=== PATIENT | female | born 1995 | race Caucasian/White ===

== ENCOUNTER 2018-04-25 11:43 | Emergency (ER) | payer OTHER ==
[2018-04-25 11:48] VITALS: TEMP 98.1; BMI 25.1
--- NOTE | 2018-04-25 12:03 | PDOC ---
History of Present Illness - General Chief Complaint: Vaginal Bleeding Stated Complaint: VAGINAL BLEEDING Time Seen by Provider: 04/25/18 12:02 History Source: Patient Exam Limitations: No Limitations - History of Present Illness Initial Comments: 04/25/18 12:05 CHIEF COMPLAINT: Vaginal bleeding HISTORY OF PRESENT ILLNESS: This is an otherwise healthy 23-year-old female, LMP 02/25, who presents complaining of heavy vaginal bleeding with clots, pelvic cramping, and back pain since last night. She believes she may have had a miscarriage and would like further evaluation. She denies dizziness/ lightheadedness or any other symptoms. She normally receives obstetric care at [address] [place] [address]. She did have an ultrasound at [facility] for this , but does not recall any information about it including dating. Vital signs on arrival are all within normal limits. REVIEW OF SYSTEMS: GENERAL/CONSTITUTIONAL: No fever or chills. No weakness. No weight change. HEAD, EYES, EARS, NOSE AND THROAT: No change in vision. No ear pain or discharge. No sore throat. CARDIOVASCULAR: No chest pain or palpitations. RESPIRATORY: No cough, wheezing, or shortness of breath. GASTROINTESTINAL: No nausea, vomiting, diarrhea or constipation. GENITOURINARY: See HPI. MUSCULOSKELETAL: No joint or muscle swelling or pain. No neck or back pain. SKIN: No rash or easy bruising. NEUROLOGIC: No headache, vertigo, loss of consciousness, or loss of sensation. PSYCHIATRIC: No depression or anxiety. ENDOCRINE: No increased thirst. No abnormal weight change. HEMATOLOGIC/LYMPHATIC: No anemia, easy bleeding, or history of blood clots. ALLERGIC/IMMUNOLOGIC: No hives or skin allergy. No latex allergy. PHYSICAL EXAM: GENERAL: The patient is awake, alert, and fully oriented, in no acute distress. HEAD: Normal with no signs of trauma. ENT: Pupils equal, round and reactive to light, extraocular movements intact, sclera anicteric, conjunctiva clear. Neck supple. LUNGS: Clear to auscultation bilaterally. Normal excursion. No respiratory distress or use of accessory muscles. CV: RRR, S1/S2, no MRG. Cap refill < 2 sec. ABDOMEN: Soft, non-distended, non-tender. EXTREMITIES: Normal range of motion, no edema. NEUROLOGICAL: Normal speech, normal gait. CN II-XII grossly intact. PSYCH: Normal mood, normal affect. SKIN: Warm, dry, normal turgor, no rashes or lesions noted. : Normal external exam. Cervix open 1 fingerbreadth. Moderate bleeding and clots in vaginal vault. Past History - Past Medical History Allergies/Adverse Reactions: Allergies Allergy/AdvReac Type Severity Reaction Status Date / Time Latex, Natural Rubber Allergy Mild Hives Verified 04/25/18 12:29 morphine Allergy Mild Hives Verified 04/25/18 12:29 onion Allergy Hives Verified 04/25/18 12:29 Home Medications: Ambulatory Orders NK [No Known Home Medication] 11/23/15 Anemia: Yes Asthma: No Cancer: No Cardiac Disorders: No COPD: No Diabetes: No HTN: No Seizures: No Thyroid Disease: No - Surgical History Abdominal Surgery: No GI Surgery: No Neurologic Surgery: No - Immunization History Immunization Up to Date: No - Suicide/Smoking/Psychosocial Hx Smoking History: Current every day smoker Have you smoked in the past 12 months: No Number of Cigarettes Smoked Daily: 8 Cigars Per Day: 0 Information on smoking cessation initiated: No 'Breaking Loose' booklet given: 11/23/15 Hx Alcohol Use: No Drug/Substance Use Hx: No Substance Use Type: Alcohol Hx Substance Use Treatment: No *Physical Exam - Vital Signs Last Vital Signs Temp Pulse Resp BP Pulse Ox 98.1 F 75 18 127/63 98 04/25/18 11:45 04/25/18 11:45 04/25/18 11:45 04/25/18 11:45 04/25/18 11:45 Moderate Sedation - Procedure Monitoring Vital Signs: Procedure Monitoring Vital Signs Temperature 98.1 F 04/25/18 11:45 Pulse Rate 75 04/25/18 11:45 Respiratory Rate 18 04/25/18 11:45 Blood Pressure 127/63 04/25/18 11:45 O2 Sat by Pulse Oximetry (%) 98 04/25/18 11:45 ED Treatment Course - LABORATORY CBC & Chemistry Diagram: 04/25/18 12:23 04/25/18 12:23 Medical Decision Making - Medical Decision Making 04/25/18 13:49 A/P: 23-year-old female with vaginal bleeding in first trimester . 1. Labs including CBC, beta hCG, type and screen 2. Tylenol for pain 3. Transvaginal ultrasound 4. Reassess 04/25/18 14:40 Ultrasound reviewed: thickened endometrium without evidence of IUP. 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
[2018-04-25] MEDS ORDERED: ACETAMINOPHEN 500 MG TABLET (FP) PO ONE (12:06)
[2018-04-25] MEDS ORDERED: ACETAMINOPHEN 325 MG TABLET (FP) ONE (12:16)
[2018-04-25 12:33] LABS: BASO % 0.4 % (0-2.0); EOS % 0.7 % (0-4.5); HEMATOCRIT 31.5 % (32.4-45.2); HEMOGLOBIN 11.3 GM/dL (10.7-15.3); LYMPH % 23.3 % (8-40); MCH 33.2 pg (25.7-33.7); MCHC 35.8 g/dl (32.0-36.0); MEAN CELL VOLUME 92.7 fl (80-96); MEAN PLT VOLUME 8.2 fl (7.5-11.1); MONO % 7.5 % (3.8-10.2); NEUT % 68.1 % (42.8-82.8); PLATELET COUNT 309 K/MM3 (134-434); WHITE BLOOD COUNT 9.2 K/mm3 (4.0-10.0)
[2018-04-25 13:49] LABS: ALBUMIN 3.5 g/dl (3.4-5.0); ALK PHOS 56 U/L (45-117); ANION GAP 4 MMOL/L (8-16); BILIRUBIN,TOTAL 0.4 mg/dL (0.2-1); BLOOD UREA NITROGEN 8 mg/dL (7-18); CALCIUM 8.6 mg/dL (8.5-10.1); CHLORIDE 106 mmol/L (98-107); CO2 28 mmol/L (21-32); CREATININE 0.5 mg/dL (0.55-1.3); GLUCOSE,RANDOM 88 mg/dL (74-106); POTASSIUM 3.8 mmol/L (3.5-5.1); SGOT/AST 9 U/L (15-37); SGPT/ALT 13 U/L (13-61); SODIUM 138 mmol/L (136-145); TOT PROT 6.7 g/dl (6.4-8.2)
[2018-04-25 14:32] VITALS: BP 111/58; PULSE 60
== END 2018-04-25 14:59 | disposition home or self-care (01) ==
LOC: JER 11:43
DX: O03.9 Complete or unspecified spontaneous abortion without complication (principal); F17.210 Nicotine dependence, cigarettes, uncomplicated
CPT/HCPCS: 36415; 76801-TC; 80053; 84702; 85025; 86850; 86870; 86900; 86901; 86902; 99283-25

== ENCOUNTER 2018-07-26 09:03 | Emergency (ER) | payer OTHER ==
[2018-07-26 09:09] VITALS: BP 110/71; PULSE 78; TEMP 98.4; BMI 25.4
[2018-07-26] MEDS ORDERED: ALBUTEROL SO4 2.5/IPRATROPIUM 0.5 INH SOL 3 ML VIAL.NEB. NEB ONE ×2 (09:23→09:26)
[2018-07-26] MEDS ORDERED: IBUPROFEN 600 MG TABLET (FP) PO ONE ×2 (09:47→10:03)
--- NOTE | 2018-07-26 09:47 | PDOC ---
History of Present Illness - General Chief Complaint: Cold Symptoms Stated Complaint: COUGH Time Seen by Provider: 07/26/18 09:15 History Source: Patient Exam Limitations: No Limitations - History of Present Illness Initial Comments: 07/26/18 11:55 Patient came with complaints of worsening cough and cold symptoms the past few days. States does not have fever but felt chills this morning. Has have a moist cough but is unknown phlegm color. Has been using upok-yzp-xgawerw medications with minimal resolved. Is a smoker. States daughter was ill with same earlier this week. Timing/Duration: reports: getting worse Severity: reports: mild, moderate Modifying Factors: improves with: coughing Associated Symptoms: reports: cough, facial pain, headache, nasal drainage Past History - Travel Traveled outside of the country in the last 30 days: No Close contact w/someone who was outside of country & ill: No - Past Medical History Allergies/Adverse Reactions: Allergies Allergy/AdvReac Type Severity Reaction Status Date / Time Latex, Natural Rubber Allergy Mild Hives Verified 04/25/18 12:29 morphine Allergy Mild Hives Verified 04/25/18 12:29 onion Allergy Hives Verified 04/25/18 12:29 Home Medications: Ambulatory Orders Albuterol Sulfate Inhaler - [Ventolin HFA Inhaler -] 1 - 2 inh PO Q4H #1 inhaler 07/26/18 Anemia: Yes Asthma: No Cancer: No Cardiac Disorders: No COPD: No Diabetes: No HTN: No Seizures: No Thyroid Disease: No - Surgical History Abdominal Surgery: No GI Surgery: No Neurologic Surgery: No - Immunization History Immunization Up to Date: No - Suicide/Smoking/Psychosocial Hx Smoking History: Current every day smoker Have you smoked in the past 12 months: Yes Number of Cigarettes Smoked Daily: 6 Cigars Per Day: 0 Information on smoking cessation initiated: No 'Breaking Loose' booklet given: 11/23/15 Hx Alcohol Use: No Drug/Substance Use Hx: No Substance Use Type: Alcohol Hx Substance Use Treatment: No Review of Systems - Review of Systems Able to Perform ROS?: Yes Is the patient limited Sinhala proficient: Yes Constitutional: Yes: Symptoms Reported, See HPI, Loss of Appetite, Malaise. No : Fever HEENTM: Yes: See HPI. No: Symptoms Reported Respiratory: Yes: See HPI, Cough. No: Symptoms reported : No: Symptoms Reported Musculoskeletal: Yes: Symptoms Reported, See HPI, Joint Swelling, Muscle Pain All Other Systems: Reviewed and Negative *Physical Exam - Vital Signs Last Vital Signs Temp Pulse Resp BP Pulse Ox 98.4 F 78 18 110/71 99 07/26/18 09:06 07/26/18 09:06 07/26/18 09:06 07/26/18 09:06 07/26/18 09:06 - Physical Exam General Appearance: Yes: Nourished, Appropriately Dressed, Mild Distress HEENT: positive: MARIOLA, TMs Normal, Pharynx Normal, Nasal Congestion, Rhinorrhea , Sinus Tenderness Neck: positive: Supple, Lymphadenopathy (R), Lymphadenopathy (L) Respiratory/Chest: positive: Decreased Breath Sounds. negative: Lungs Clear, Normal Breath Sounds Gastrointestinal/Abdominal: positive: Soft Musculoskeletal: positive: Normal Inspection Extremity: positive: Normal Capillary Refill, Normal Inspection, Normal Range of Motion Integumentary: positive: Dry, Warm Neurologic: positive: goal umpire II-XII NML intact, Fully Oriented, Alert, Normal Mood/ Affect, Normal Response, Motor Strength 5/5 Progress Note - Progress Note Progress Note: Upper respiratory infection, influenza testing negative. Somewhat improved after albuterol/DuoNeb given therefore will treat with albuterol inhaler, and continue tzjy-uym-ffbkgew medications for conservative treatments. *DC/Admit/Observation/Transfer Diagnosis at time of Disposition: Upper respiratory infection, acute - Discharge Dispostion Disposition: HOME Condition at time of disposition: Stable Decision to Admit order: No - Prescriptions Prescriptions: Albuterol Sulfate Inhaler - [Ventolin HFA Inhaler -] 1 - 2 inh PO Q4H #1 inhaler - Referrals - Patient Instructions Printed Discharge Instructions: DI for Viral Upper Respiratory Infection -- Adult Additional Instructions: Rest, drink lots of fluids: Teas, water, soups, Pedialyte Saltwater gargles Steamy showers/seem to face break up mucus Avoid contact with others until fevers and cough resolved Lots of handwashing and good hygiene Continue tzdp-pie-kjfmvag medications for symptomatic relief Tylenol or Motrin for fever and pain Followup with private physician in one to 2 days as needed Return to emergency department for worsened symptoms, fevers, dehydration - Post Discharge Activity Forms/Work/School Notes: Back to Work
== END 2018-07-26 10:09 | disposition home or self-care (01) ==
LOC: JERFT 09:03
PROC: 3E0F7GC Introduction of Other Therapeutic Substance into Respiratory Tract, Via Natural or Artificial Opening (ICD-10-PCS; principal; 2018-07-26)
DX: J06.9 Acute upper respiratory infection, unspecified (principal); Z86.2 Personal history of diseases of the blood and blood-forming organs and certain disorders involving the immune mechanism; Z88.6 Allergy status to analgesic agent; Z91.040 Latex allergy status; Z91.018 Allergy to other foods
CPT/HCPCS: 87804; 99281-25

== ENCOUNTER 2019-01-09 12:02 | Emergency (ER) | payer OTHER ==
[2019-01-09 12:10] VITALS: BP 126/85; PULSE 97; TEMP 98.5; BMI 25.7
--- NOTE | 2019-01-09 12:42 | PDOC ---
History of Present Illness - General Chief Complaint: Cold Symptoms Stated Complaint: COUGH, HEADACHE Time Seen by Provider: 01/09/19 12:15 - History of Present Illness Initial Comments: 01/09/19 12:39 23-year-old female presents for evaluation of flulike symptoms x4 days she has no comorbidities. Past History - Past Medical History Allergies/Adverse Reactions: Allergies Allergy/AdvReac Type Severity Reaction Status Date / Time morphine Allergy Mild Hives Verified 01/09/19 12:10 onion Allergy Hives Verified 01/09/19 12:10 Home Medications: Ambulatory Orders Albuterol Sulfate Inhaler - [Ventolin HFA Inhaler -] 1 - 2 inh PO Q4H #1 inhaler 07/26/18 Guaifenesin Dm [Mucinex Dm -] 1 tab PO BID #60 tab.er.12h 01/09/19 Ibuprofen [Motrin -] 600 mg PO TID #30 tablet 01/09/19 Anemia: Yes Asthma: No Cancer: No Cardiac Disorders: No COPD: No Diabetes: No HTN: No Seizures: No Thyroid Disease: No - Surgical History Abdominal Surgery: No GI Surgery: No Neurologic Surgery: No - Immunization History Immunization Up to Date: No - Psycho Social/Smoking Cessation Hx Smoking History: Never smoked Have you smoked in the past 12 months: Yes Number of Cigarettes Smoked Daily: 6 Cigars Per Day: 0 Information on smoking cessation initiated: No 'Breaking Loose' booklet given: 11/23/15 Hx Alcohol Use: No Drug/Substance Use Hx: No Substance Use Type: Alcohol Hx Substance Use Treatment: No Review of Systems - Review of Systems Constitutional: Yes: Chills, Diaphoresis, Malaise, Night Sweats. No: Fever HEENTM: Yes: Nose Congestion Respiratory: Yes: Cough *Physical Exam - Vital Signs Last Vital Signs Temp Pulse Resp BP Pulse Ox 98.5 F 97 H 19 126/85 98 01/09/19 12:08 01/09/19 12:08 01/09/19 12:08 01/09/19 12:08 01/09/19 12:08 - Physical Exam Comments: 01/09/19 12:40 HEAD: NC/AT EYES: Conjuntiva clear Ears: Canals and TM's normal NOSE: No d/c THROAT: Moist mucous membrances, oral pharanx clear, uvula midline NECK: Supple without adenopathy CARDIAC: S1 S2 LUNGS: CTA Full and Equal breath sounds ABDOMEN: Soft NT ND MS: Full ROM in all joints without edema NEUROLOGIC: No gross sensory or motor deficits, NVID SKIN: Normal color and temperature no lesions or rashes Medical Decision Making - Medical Decision Making 01/09/19 12:40 Discussed use of ygue-iug-uocflti cold remedies. Patient will stop that medication only take Tylenol Motrin and Mucinex. This was sent to her pharmacy follow-up with primary care physician in 1 to 2 days for further evaluation and treatment options. Discharge - Discharge Information Problems reviewed: Yes Clinical Impression/Diagnosis: Viral URI with cough Condition: Stable Disposition: HOME - Admission No - Follow up/Referral Referrals: Kamille Douglas MD [Staff Physician] - - Patient Discharge Instructions Patient Printed Discharge Instructions: DI for Viral Upper Respiratory Infection -- Adult Additional Instructions: Please discontinue rjld-wjg-thloiiu cold medications. Only take the Mucinex Tylenol and Motrin as directed. Return to the emergency room for worsening symptoms. And without fail please follow-up with your primary care physician in 1 to 2 days for further evaluation and treatment options. Return to the emergency room should symptoms worsen or go unresolved. - Post Discharge Activity
[2019-01-09] MEDS ORDERED: IBUPROFEN 600 MG TABLET (FP) PO ONE ×2 (12:50→12:51)
[2019-01-09] MEDS ORDERED: ACETAMINOPHEN 500 MG TABLET (FP) PO ONE (12:50)
[2019-01-09] MEDS ORDERED: ACETAMINOPHEN 500 MG TABLET (FP) ONE (12:51)
== END 2019-01-09 13:06 | disposition home or self-care (01) ==
LOC: JERFT 12:02
DX: J06.9 Acute upper respiratory infection, unspecified (principal); R05 Cough; F17.210 Nicotine dependence, cigarettes, uncomplicated
CPT/HCPCS: 99282-25

== ENCOUNTER 2019-03-28 09:10 | Emergency (ER) | payer OTHER ==
[2019-03-28 09:15] VITALS: BMI 28.5
[2019-03-28 11:48] VITALS: BP 109/56; PULSE 64; TEMP 98.4
[2019-03-28 11:59] LABS: PH,URINE 5.5 (5.0-8.0); URINE APPEARANCE CLEAR; URINE BILIRUBIN NEGATIVE (NEGATIVE); URINE COLOR YELLOW; URINE GLUCOSE (UA) NEGATIVE (NEGATIVE); URINE KETONE TRACE (NEGATIVE); URINE LEUK ESTERASE NEGATIVE (NEGATIVE); URINE NITRITE NEGATIVE (NEGATIVE); URINE PROTEIN NEGATIVE (NEGATIVE)
== END 2019-03-28 15:30 | disposition home or self-care (01) ==
LOC: JER 09:10 → JERFT 09:10 → JER 15:30
DX: O26.892 Other specified pregnancy related conditions, second trimester (principal); M54.5 Low back pain; Z3A.23 23 weeks gestation of pregnancy
CPT/HCPCS: 81003; 99281-25

== ENCOUNTER 2019-04-09 06:25 | Emergency (ER) | payer OTHER ==
--- NOTE | 2019-04-09 07:18 | PDOC ---
History of Present Illness - General Stated Complaint: LOWER BACK PAIN Time Seen by Provider: 04/09/19 07:17 History Source: Patient Exam Limitations: No Limitations - History of Present Illness Initial Comments: 04/09/19 07:30 24-year-old female presents to the emergency room with complaints of low back pain for the past 2 months. Patient has been seen by her [facility]IN STRAP CUTTER other ERs, and her PCP with only recommendations to apply heating pad/ice packs, take Tylenol and stretching exercises. Patient was seen 2 weeks ago in L&D and was discharged home after receiving a work-up patient states pain continues and is unable to perform daily activities secondary to pain along with caring for other small children at home Occurred: reports: other Severity: reports: moderate Pain Location: reports: back Method of Injury: Yes: other Modifying Factors: improves with: None Associated Symptoms (Fall): other Past History - Travel Traveled outside of the country in the last 30 days: No Close contact w/someone who was outside of country & ill: No - Past Medical History Allergies/Adverse Reactions: Allergies Allergy/AdvReac Type Severity Reaction Status Date / Time morphine Allergy Mild Hives Verified 04/09/19 07:36 onion Allergy Hives Verified 04/09/19 07:36 Home Medications: Ambulatory Orders Albuterol Sulfate Inhaler - [Ventolin HFA Inhaler -] 1 - 2 inh PO Q4H #1 inhaler 07/26/18 Guaifenesin Dm [Mucinex Dm -] 1 tab PO BID #60 tab.er.12h 01/09/19 Ibuprofen [Motrin -] 600 mg PO TID #30 tablet 01/09/19 Lidocaine 5% Patch [Lidoderm Patch -] 1 patch TP DAILY #30 patch 04/09/19 Anemia: Yes Asthma: No Cancer: No Cardiac Disorders: No COPD: No Diabetes: No HTN: No Seizures: No Thyroid Disease: No - Surgical History Abdominal Surgery: No GI Surgery: No Neurologic Surgery: No - Immunization History Immunization Up to Date: No - Psycho Social/Smoking Cessation Hx Smoking History: Never smoked Have you smoked in the past 12 months: Yes Number of Cigarettes Smoked Daily: 6 Cigars Per Day: 0 'Breaking Loose' booklet given: 11/23/15 Hx Alcohol Use: No Drug/Substance Use Hx: No Substance Use Type: Alcohol Hx Substance Use Treatment: No Patient Lives Alone: No Lives with/in: spouse/SO Review of Systems - Review of Systems Able to Perform ROS?: Yes Constitutional: No: Symptoms Reported HEENTM: No: Symptoms Reported Respiratory: No: Symptoms reported ABD/GI: No: Symptoms Reported Musculoskeletal: Yes: Back Pain. No: Muscle Pain, Muscle Weakness Integumentary: No: Symptoms Reported Neurological: No: Numbness, Paresthesia, Tingling, Weakness, Unsteady Gait, Dizziness *Physical Exam - Physical Exam General Appearance: Yes: Nourished, Appropriately Dressed. No: Apparent Distress Gastrointestinal/Abdominal: negative: Tenderness Musculoskeletal: positive: Other (Right sciatica tenderness). negative: Vertebral Tenderness Extremity: positive: Normal Inspection Neurologic: positive: Normal Mood/Affect, Motor Strength 5/5 (Ambulatory) Medical Decision Making - Medical Decision Making 04/09/19 07:30 Chief complaint: Low back pain worsening in severity with past few months. Patient has been seen by other providers including her [facility] STRAP CUTTER just 2 weeks ago with full assessment and negative findings. Patient has been taking Tylenol doing exercises and applying cold packs/ heating pads to the area with no improvement Exam: Right sciatica tenderness on exam normal axial loading Plan: Lidoderm patch along with prescription for the same. Patient also will be given a referral to physical therapy Discharge - Discharge Information Problems reviewed: Yes Clinical Impression/Diagnosis: Low back pain with sciatica Condition: Good Disposition: HOME - Additional Discharge Information Prescriptions: Lidocaine 5% Patch [Lidoderm Patch -] 1 patch TP DAILY #30 patch - Follow up/Referral Referrals: Katarina Hedrick DO [Primary Care Provider] - - Patient Discharge Instructions Patient Printed Discharge Instructions: DI for Back Pain With Sciatica Additional Instructions: Use Lidoderm patch to affected area and change as recommended. Try and Epson salt soaking bath once a day allowing your hips to relax. Please call [phone] and schedule an appointment with the physical therapist - Post Discharge Activity
[2019-04-09] MEDS ORDERED: LIDOCAINE 5% TOPICAL PATCH TP ONE (07:38)
[2019-04-09 07:43] VITALS: BP 129/70; PULSE 80; TEMP 98.1; BMI 28.7
[2019-04-09] MEDS ORDERED: LIDOCAINE 5% TOPICAL PATCH ONE (07:47)
[2019-04-09] MEDS ORDERED: LIDOCAINE PATCH REMOVAL MC SCH (22:00)
== END 2019-04-09 08:00 | disposition home or self-care (01) ==
LOC: JER 06:25
DX: M54.32 Sciatica, left side (principal); Z87.891 Personal history of nicotine dependence; D64.9 Anemia, unspecified; Z88.6 Allergy status to analgesic agent; Z91.018 Allergy to other foods
CPT/HCPCS: 99282-25

== ENCOUNTER 2019-05-27 11:16 | Emergency (ER) | payer OTHER ==
[2019-05-27 11:30] VITALS: BP 122/68; PULSE 97; TEMP 98.3; BMI 29.9
--- NOTE | 2019-05-27 13:09 | PDOC ---
History of Present Illness - General Chief Complaint: Sore Throat Stated Complaint: MELE EAR PAIN/SORE THROAT Time Seen by Provider: 05/27/19 11:30 - History of Present Illness Initial Comments: 05/27/19 13:07 24-year-old female with viral upper respiratory infection left ear pain and throat pain x1 day subjective fever at home Past History - Past Medical History Allergies/Adverse Reactions: Allergies Allergy/AdvReac Type Severity Reaction Status Date / Time morphine Allergy Mild Hives Verified 05/27/19 11:25 onion Allergy Hives Verified 05/27/19 11:25 Home Medications: Ambulatory Orders Prenat 115/Iron Fum/Folic/Dss [ 19 Tablet] 1 each PO DAILY 05/27/19 Anemia: Yes Asthma: No Cancer: No Cardiac Disorders: No COPD: No Diabetes: No HTN: No Seizures: No Thyroid Disease: No - Surgical History Abdominal Surgery: No GI Surgery: No Neurologic Surgery: No - Immunization History Immunization Up to Date: No - Psycho Social/Smoking Cessation Hx Smoking History: Unknown if ever smoked Have you smoked in the past 12 months: Yes Number of Cigarettes Smoked Daily: 6 Cigars Per Day: 0 'Breaking Loose' booklet given: 11/23/15 Hx Alcohol Use: No Drug/Substance Use Hx: No Substance Use Type: Alcohol Hx Substance Use Treatment: No Review of Systems - Review of Systems Constitutional: Yes: Fever HEENTM: Yes: Ear Pain, Nose Congestion, Throat Pain *Physical Exam - Vital Signs Last Vital Signs Temp Pulse Resp BP Pulse Ox 98.3 F 97 H 16 122/68 99 05/27/19 11:28 05/27/19 11:28 05/27/19 11:28 05/27/19 11:28 05/27/19 11:28 - Physical Exam 05/27/19 13:07 GENERAL: The patient is awake, alert, and fully oriented, in no acute distress. HEAD: Normal with no signs of trauma. EYES: sclera anicteric, conjunctiva clear. ENT: Left ear mildly erythemic tympanic membrane, canal normal right ear tympanic membrane and canal normal; oropharynx clear uvula midline NECK: Normal range of motion LUNGS: Breath sounds equal, clear to auscultation bilaterally. No wheezes, and no crackles. HEART: S1 and S2 without murmur, rub or gallop. ABDOMEN: Soft, nontender, normoactive bowel sounds. No guarding, no rebound. No masses. EXTREMITIES: Normal range of motion, no edema. No clubbing or cyanosis. No cords, erythema, or tenderness. NEUROLOGICAL: Cranial nerves II through XII grossly intact. PSYCH: Normal mood, normal affect. SKIN: Warm, Dry, normal turgor, no rashes or lesions noted. 05/27/19 13:08 Medical Decision Making - Medical Decision Making 05/27/19 13:08 Supportive care for viral upper respiratory infection flu and strep negative Discharge - Discharge Information Problems reviewed: Yes Clinical Impression/Diagnosis: Upper respiratory infection, acute Condition: Stable Disposition: HOME - Admission No - Follow up/Referral Referrals: Katarina Hedrick DO [Primary Care Provider] - - Patient Discharge Instructions Additional Instructions: Tylenol Motrin for any pain or discomfort. Return to the emergency room for worsening symptoms and without fail follow-up with your primary care physician in 1 to 2 days for further evaluation and treatment options. Your flu and strep were negative today. - Post Discharge Activity
== END 2019-05-27 13:44 | disposition home or self-care (01) ==
LOC: JERFT 11:16
DX: J06.9 Acute upper respiratory infection, unspecified (principal); Z91.018 Allergy to other foods; Z88.5 Allergy status to narcotic agent
CPT/HCPCS: 87070; 87804; 87880; 99282-25

== ENCOUNTER 2019-12-25 11:20 | Emergency (ER) | payer OTHER ==
--- NOTE | 2019-12-26 17:44 | PDOC ---
History of Present Illness - General Chief Complaint: Injury Time Seen by Provider: 12/25/19 11:40 History Source: Patient Exam Limitations: No Limitations - History of Present Illness Initial Comments: 12/26/19 17:40 Patient is a 24-year-old female with a right ankle injury after a fall yesterday. Patient believes that she inverted her ankle after a trip and fall. She denies hitting her head or any LOC. She states she rolled her ankle while carrying her daughter's car seat. Walking causes pain. She denies any numbness or tingling. She put some muscle cream on her ankle to help with the pain. She also wrapped it with a Kerlix wrap for support. Past History - Medical History Allergies/Adverse Reactions: Allergies Allergy/AdvReac Type Severity Reaction Status Date / Time morphine Allergy Mild Hives Verified 05/27/19 11:25 Home Medications: Ambulatory Orders Prenat 115/Iron Fum/Folic/Dss [ 19 Tablet] 1 each PO DAILY 05/27/19 Ferrous Sulfate [Feosol] 325 mg PO DAILY #30 tablet 07/15/19 Ibuprofen 600 mg PO Q6H PRN #30 tablet 07/15/19 Oxycodone HCl/Acetaminophen [Percocet 5-325 mg Tablet -] 1 - 2 tab PO Q6H PRN #20 tab MDD 4 07/15/19 Anemia: Yes Asthma: No Cancer: No Cardiac Disorders: No COPD: No Diabetes: No HTN: No Seizures: No Thyroid Disease: No - Surgical History Abdominal Surgery: No GI Surgery: No Neurologic Surgery: No - Immunization History Immunization Up to Date: No - Psycho-Social/Smoking History Smoking History: Never smoked Have you smoked in the past 12 months: No Number of Cigarettes Smoked Daily: 6 Cigars Per Day: 0 'Breaking Loose' booklet given: 11/23/15 Review of Systems - Review of Systems Comments:: 12/25/19 11:45 - Review of Systems Able to Perform ROS?: Yes Constitutional: No: Fever, Chills, Loss of Appetite, Night Sweats, Weakness HEENTM: No: Eye Pain, Vision changes, Ear Pain, Throat Pain, Throat Swelling, Mouth Pain, Difficulty Swallowing Respiratory: No: Cough, Shortness of Breath, Wheezing, Sputum Production Cardiac (ROS): No: Chest Pain, Chest Tightness, Palpitations, Irregular Heart Beat, Edema ABD/GI: No: Nausea, Vomiting, Abdominal Pain, Diarrhea : No Dysuria, No Hematuria, No Frequency, No Urgency Musculoskeletal: No: Muscle Pain, Back Pain, Muscle Weakness, Neck Pain; positive: Right ankle pain Integumentary: No: Lesions, Rash Neurological: No: Headache, Numbness, Tingling, Weakness, Speech Difficulties *Physical Exam - Physical Exam 12/25/19 11:45 - Physical Exam General Appearance: Nourished, Appropriately Dressed, No Distress Neck: Supple, No Lymphadenopathy (R), No Lymphadenopathy (L), No Rigidity, No Decreased range of motion Respiratory/Chest: Lungs Clear, Normal Breath Sounds. No Respiratory Distress, No Accessory Muscle Use Cardiovascular: Regular Rhythm, Regular Rate, S1, S2 Musculoskeletal: Normal Inspection. No Decreased Range of Motion; right ankle with tenderness laterally over the soft tissue. No tenderness to the fibula to palpation. Full range of motion of the right ankle. DP and PT pulses 2+. Brisk capillary refill distally. Sensation intact distally. Extremity: Normal Capillary Refill, Normal Inspection Integumentary: Normal Color, Dry. 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 Plan: Foot and ankle x-ray performed which showed no acute fracture or dislocation. Aircast and crutches given A Motrin prescription, paper prescription, was given to the patient 600 mg p.o. 3 times daily as needed pain Referral for orthopedics has been given. The patient understands and agrees with this treatment plan and she is stable for discharge. Discharge - Discharge Information Problems reviewed: Yes Clinical Impression/Diagnosis: Right ankle pain Qualifiers: Chronicity: acute Qualified Code(s): M25.571 - Pain in right ankle and joints of right foot Right ankle sprain Qualifiers: Encounter type: initial encounter Involved ligament of ankle: other ligament Qualified Code(s): S93.491A - Sprain of other ligament of right ankle, initial encounter Condition: Stable Disposition: HOME - Follow up/Referral Referrals: Frankie Nagel MD [Staff Physician] - - Patient Discharge Instructions Patient Printed Discharge Instructions: DI for Ankle Sprain Additional Instructions: Ice and elevate your ankle. Use the crutches as needed to help support your walking. Wear the Aircast for support. You can weight-bear as tolerated. Take the ibuprofen as needed for pain but please take with food in your stomach. Follow-up with orthopedics for further evaluation and treatment, referral given. - Post Discharge Activity Work/Back to School Note: Back to Work
== END 2019-12-25 17:45 | disposition home or self-care (01) ==
LOC: JERFT 11:20
DX: M25.571 Pain in right ankle and joints of right foot (principal); S93.491A Sprain of other ligament of right ankle, initial encounter
CPT/HCPCS: 99283-25

== ENCOUNTER 2021-02-02 19:12 | Emergency (ER) | payer OTHER ==
[2021-02-02 19:18] VITALS: BP 123/70; PULSE 80; TEMP 98.2; BMI 27.1
[2021-02-02 20:49] LABS: EPI CELLS >36 /uL (0-25.1); HYALINE CASTS 6 /uL (0-3.1); PH,URINE 6.5 (5.0-8.0); URINE APPEARANCE CLOUDY; URINE BACTERIA >9,000 /uL (0-1359); URINE BILIRUBIN NEGATIVE (NEGATIVE); URINE COLOR DK YELLOW; URINE GLUCOSE (UA) NEGATIVE (NEGATIVE); URINE KETONE TRACE (NEGATIVE); URINE LEUK ESTERASE 1+ (NEGATIVE); URINE NITRITE POSITIVE (NEGATIVE); URINE PROTEIN 1+ (NEGATIVE); URINE RBC 50 /uL (0-23.9); URINE WBC 63 /uL (0-25.8)
[2021-02-02 21:21] LABS: BASO % 0.3 % (0-2.0); EOS % 1.2 % (0-4.5); HEMATOCRIT 36.2 % (32.4-45.2); HEMOGLOBIN 12.5 GM/dL (10.7-15.3); LYMPH % 32.6 % (8-40); MCH 31.5 pg (25.7-33.7); MCHC 34.4 g/dl (32.0-36.0); MEAN CELL VOLUME 91.5 fl (80-96); MEAN PLT VOLUME 8.1 fl (7.5-11.1); MONO % 6.6 % (3.8-10.2); NEUT % 59.3 % (42.8-82.8); PLATELET COUNT 335 10^3/uL (134-434); RBC 3.95 M/mm3 (3.60-5.2); RDW 13.5 % (11.6-15.6); WHITE BLOOD COUNT 8.8 K/mm3 (4.0-10.0)
[2021-02-02 21:42] LABS: CALCIUM 9.1 mg/dL (8.5-10.1)
[2021-02-02 21:43] LABS: ALBUMIN 4.1 g/dl (3.4-5.0); BLOOD UREA NITROGEN 10.8 mg/dL (7-18)
[2021-02-02 21:46] LABS: CREATININE 0.8 mg/dL (0.55-1.3)
[2021-02-02 21:47] LABS: BILIRUBIN,TOTAL 0.2 mg/dL (0.2-1); TOT PROT 7.8 g/dl (6.4-8.2)
== END 2021-02-02 22:18 | disposition home or self-care (01) ==
LOC: JER 19:12 → JERFT 19:12
DX: N30.00 Acute cystitis without hematuria (principal); N92.6 Irregular menstruation, unspecified; R10.30 Lower abdominal pain, unspecified
CPT/HCPCS: 36415; 76830-TC; 80053; 81003; 84703; 85025; 86850; 86870; 86900; 86901; 86902; 99284-25

== ENCOUNTER 2021-05-16 09:38 | Emergency (ER) | payer OTHER ==
[2021-05-16 09:49] VITALS: BP 126/76; PULSE 85; TEMP 98.2; BMI 28.3
[2021-05-16] MEDS ORDERED: ONDANSETRON 4 MG TABLET PO ONE (10:38)
[2021-05-16] MEDS ORDERED: ACETAMINOPHEN 500 MG TABLET (FP) PO ONE (10:38)
[2021-05-16] MEDS ORDERED: ACETAMINOPHEN 325 MG TABLET (FP) ONE (10:55)
[2021-05-16] MEDS ORDERED: ONDANSETRON *ODT* 4 MG TABLET ONE (10:56)
== END 2021-05-16 10:40 | disposition home or self-care (01) ==
LOC: JER 09:38 → JERFT 09:38
DX: R11.2 Nausea with vomiting, unspecified (principal); R19.7 Diarrhea, unspecified
CPT/HCPCS: 99283-25

== ENCOUNTER 2022-10-12 11:16 | Emergency (ER) | payer OTHER ==
[2022-10-12 11:28] VITALS: BP 143/91; PULSE 99; RESP 20; TEMP 99.2; BMI 32.1
[2022-10-12] MEDS ORDERED: DEXAMETHASONE SOD PHOSPHATE 10 MG/1 ML VIAL IVPUSH ONE (12:19)
[2022-10-12] MEDS ORDERED: IBUPROFEN 600 MG TABLET (FP) PO ONE ×2 (12:20→12:26)
[2022-10-12] MEDS ORDERED: DEXAMETHASONE SOD PHOSPHATE 10 MG/1 ML VIAL ONE (12:27)
[2022-10-12 12:55] LABS: THROAT:GRP A STREP NOT DETECTED (NOTDETECTED)
== END 2022-10-12 13:44 | disposition home or self-care (01) ==
LOC: JERFT 11:16
PROC: 3E033GC Introduction of Other Therapeutic Substance into Peripheral Vein, Percutaneous Approach (ICD-10-PCS; principal; 2022-10-12)
DX: R07.0 Pain in throat (principal); M79.10 Myalgia, unspecified site; J02.9 Acute pharyngitis, unspecified; Z20.822 Contact with and (suspected) exposure to COVID-19
CPT/HCPCS: 0241U-QW; 87651; 99284-25; J1100

== ENCOUNTER 2023-10-30 13:00 | Emergency (ER) | payer OTHER ==
[2023-10-30 13:04] VITALS: BP 118/80; PULSE 74; RESP 18; TEMP 98.3; BMI 32.8
[2023-10-30] MEDS ORDERED: ACETAMINOPHEN 500 MG TABLET (FP) ONE (15:25)
[2023-10-30] MEDS: ACETAMINOPHEN 500 MG TABLET (FP) PO ONE (15:30)
== END 2023-10-30 15:45 | disposition home or self-care (01) ==
LOC: JERFT 13:00
DX: M25.562 Pain in left knee (principal)
CPT/HCPCS: 73562-TC-LT-FY; 99283-25